=== PATIENT | female | born 1940 | race African-American/Black ===

== ENCOUNTER 2020-07-04 03:29 | Inpatient (IN) | payer BC ==
[~2020-07-04] VITALS: Ht 170.2 cm; Wt 93.1 kg
[2020-07-04 10:36] LABS: BASOPHILS % 1.1 % (0.0-2.0); EOSINOPHILS % 0.2 % (0.0-5.0); HEMATOCRIT. 41.3 % (36.0-48.0); HEMOGLOBIN. 13.4 g/dL (12.0-16.0); LYMPHOCYTES % 16.2 % (20.0-50.0); MEAN CORPUSCULAR HEMOGLOBIN 25.1 pg (28.0-32.0); MEAN CORPUSCULAR VOLUME 77.5 fL (81.0-99.0); MEAN PLATELET VOLUME 8.6 fl (7.4-10.4); MONOCYTES % 4.1 % (2.0-8.0); NEUTROPHILS % 78.4 % (40.0-76.0); PLATELET 325 x1000/uL (130-400); RED BLOOD CELL COUNT 5.34 mill/uL (4.2-5.4); RED CELL DISTRIBUTION WIDTH 15.5 % (11.6-14.6)
[2020-07-04 10:46] LABS: CHLORIDE 104 mEq/L (98-107)
[2020-07-04 10:47] LABS: D-DIMER 1.85 mg/L FEU (<0.50); INR 1.1; PROTHROMBIN TIME 11.5 sec (9.6-11.0)
[2020-07-04] MEDS ORDERED: FUROSEMIDE 20MG/2ML VIAL IVP NR (11:15)
[2020-07-04] MEDS ORDERED: ASPIRIN 325MG EC TABLET PO NR (11:30)
[2020-07-04] MEDS ORDERED: DOCUSATE SODIUM 100MG CAPSULE PO PRN (15:15)
[2020-07-04] MEDS ORDERED: ACETAMINOPHEN 325MG TABLET PO PRN ×2 (15:15)
[2020-07-04] MEDS ORDERED: MAGNESIUM/ALUMINUM HYDROXIDE/SIMETHICONE 30ML UDC PO PRN (15:15)
[2020-07-04] MEDS ORDERED: TRAMADOL 50MG TABLET PO PRN (15:15)
[2020-07-04] MEDS ORDERED: NITROGLYCERIN 0.4MG TABLET SL SL PRN (15:15)
[2020-07-04] MEDS ORDERED: CLONIDINE 0.1MG TABLET PO PRN (15:15)
[2020-07-04] MEDS ORDERED: ONDANSETRON HCL 4MG/2ML INJ IV PRN (15:15)
[2020-07-04] MEDS ORDERED: GUAIFENESIN 200MG/10ML SUGAR FREE UDC PO PRN (15:15)
[2020-07-04] MEDS ORDERED: ALBUTEROL 6.7GM HFA INHALER ORI PRN (15:15)
[2020-07-04] MEDS: ENOXAPARIN 40MG/0.4ML SYR SUBCUT SCH (15:50)
[2020-07-04] MEDS ORDERED: DEXTROSE 50% WATER 50ML SYRINGE IV PRN (16:00)
[2020-07-04] MEDS: BLOOD SUGAR DIAGNOSTIC STRIP TEST SCH ×2 (17:00→21:53)
[2020-07-04 17:01] LABS: *AMPHETAMINES SCREEN URINE NEGATIVE (NEGATIVE); *BARBITURATES SCREEN URINE NEGATIVE (NEGATIVE); *BENZODIAZEPINES SCREEN URINE NEGATIVE (NEGATIVE); *COCAINE SCREEN URINE NEGATIVE (NEGATIVE); METHADONE URINE SCREEN NEGATIVE (NEGATIVE); OPIATES URINE SCREEN NEGATIVE (NEGATIVE)
[2020-07-04 17:02] LABS: CANNABINOID URINE SCREEN NEGATIVE (NEGATIVE); PHENCYCLIDINE URINE SCREEN NEGATIVE (NEGATIVE)
[2020-07-04] MEDS: FUROSEMIDE 40MG/4ML VIAL IVP SCH (17:15)
[2020-07-04] MEDS: INSULIN LISPRO 100 UNITS/ML SUBCUT SCH ×2 (18:20→21:00)
[2020-07-04] MEDS: LISINOPRIL 20MG TABLET PO SCH (21:00)
[2020-07-04] MEDS: SPIRONOLACTONE 25MG TABLET PO SCH (21:00)
[2020-07-04] MEDS: GUAIFENESIN/DM 600MG/30MG ER TAB 12HR PO SCH (21:00)
[2020-07-04] MEDS ORDERED: ALBUTEROL 6.7GM HFA INHALER ORI SCH (21:00)
[2020-07-04] MEDS: ASCORBIC ACID 500 MG TABLET PO SCH (21:00)
[2020-07-04] MEDS: FAMOTIDINE 20MG TABLET PO SCH (21:00)
[2020-07-04] MEDS ORDERED: ZOLPIDEM TARTRATE 5MG TABLET PO PRN (21:00)
[2020-07-05] VITALS (8 sets, daily range): BP systolic 128–163; BP diastolic 59–84
[2020-07-05 00:50] LABS: CREATINE KINASE MB FRACTION 1.8 ng/mL (0.5-3.6)
[2020-07-05 05:41] LABS: BASOPHILS % 0.8 % (0.0-2.0); EOSINOPHILS % 0.6 % (0.0-5.0); HEMOGLOBIN. 12.8 g/dL (12.0-16.0); MEAN CORPUSCULAR HEMOGLOBIN 24.9 pg (28.0-32.0); MEAN CORPUSCULAR VOLUME 77.6 fL (81.0-99.0); MEAN PLATELET VOLUME 8.5 fl (7.4-10.4); MONOCYTES % 8.6 % (2.0-8.0); PLATELET 327 x1000/uL (130-400); RED BLOOD CELL COUNT 5.16 mill/uL (4.2-5.4)
[2020-07-05 05:54] LABS: CHLORIDE 105 mEq/L (98-107)
[2020-07-05 06:06] LABS: CREATINE KINASE 175 IU/L (26-192); PHOSPHORUS 3.2 mg/dL (2.5-4.9)
[2020-07-05] MEDS ORDERED: IOHEXOL-350 100 ML BOTTLE ONE (06:06)
[2020-07-05] MEDS: INSULIN LISPRO 100 UNITS/ML SUBCUT SCH ×4 (06:47→21:00)
[2020-07-05] MEDS: BLOOD SUGAR DIAGNOSTIC STRIP TEST SCH ×4 (06:47→21:00)
[2020-07-05] MEDS: FUROSEMIDE 40MG/4ML VIAL IVP SCH ×2 (07:04→17:32)
[2020-07-05] MEDS: FAMOTIDINE 20MG TABLET PO SCH ×2 (09:00→21:00)
[2020-07-05] MEDS: LISINOPRIL 20MG TABLET PO SCH ×2 (09:00→21:00)
[2020-07-05] MEDS ORDERED: CLOP75TA33 PO (14:07)
[2020-07-05] MEDS ORDERED: METF-414 PO (14:07)
[2020-07-05] MEDS ORDERED: AMLO10TA80 PO (14:07)
[2020-07-05] MEDS ORDERED: ASPI-1497 PO (14:07)
[2020-07-05] MEDS ORDERED: LEVO150T8 MT (14:07)
[2020-07-05] MEDS ORDERED: GLYB5TAB7 PO (14:07)
[2020-07-05] MEDS ORDERED: CHOLECALCIFEROL 1000 MG PO (14:08)
[2020-07-05] MEDS: ASPIRIN 325MG EC TABLET PO SCH (14:29)
[2020-07-05] MEDS: ZINC SULFATE 220 MG ( 50 ) CAPSULE PO SCH (14:29)
[2020-07-05] MEDS: GUAIFENESIN/DM 600MG/30MG ER TAB 12HR PO SCH ×2 (14:30→22:14)
[2020-07-05] MEDS: ASCORBIC ACID 500 MG TABLET PO SCH ×2 (14:30→22:15)
[2020-07-05] MEDS: SPIRONOLACTONE 25MG TABLET PO SCH ×2 (14:31→22:15)
[2020-07-05] MEDS: ENOXAPARIN 40MG/0.4ML SYR SUBCUT SCH (17:34)
[2020-07-06] VITALS (8 sets, daily range): BP systolic 101–148; BP diastolic 53–81
[2020-07-06] MEDS: INSULIN LISPRO 100 UNITS/ML SUBCUT SCH ×4 (08:00→21:17)
[2020-07-06] MEDS: GUAIFENESIN/DM 600MG/30MG ER TAB 12HR PO SCH ×2 (08:24→21:16)
[2020-07-06] MEDS: ASPIRIN 325MG EC TABLET PO SCH (08:24)
[2020-07-06] MEDS: ZINC SULFATE 220 MG ( 50 ) CAPSULE PO SCH (08:24)
[2020-07-06] MEDS: FUROSEMIDE 40MG/4ML VIAL IVP SCH ×2 (08:24→16:42)
[2020-07-06] MEDS: ASCORBIC ACID 500 MG TABLET PO SCH ×2 (08:25→21:16)
[2020-07-06] MEDS: FAMOTIDINE 20MG TABLET PO SCH (08:25)
[2020-07-06] MEDS: SPIRONOLACTONE 25MG TABLET PO SCH ×2 (08:25→21:16)
[2020-07-06] MEDS: LISINOPRIL 20MG TABLET PO SCH (08:25)
[2020-07-06] MEDS: BLOOD SUGAR DIAGNOSTIC STRIP TEST SCH ×4 (08:26→21:31)
[2020-07-06] MEDS: LOSARTAN POTASSIUM 100 MG TABLET PO SCH (09:47)
[2020-07-06] MEDS: ENOXAPARIN 40MG/0.4ML SYR SUBCUT SCH (16:44)
[2020-07-07] VITALS: BP 120/72
[2020-07-07 04:00] VITALS: BP 107/52
[2020-07-07] MEDS: BLOOD SUGAR DIAGNOSTIC STRIP TEST SCH ×4 (07:45→20:53)
[2020-07-07 08:00] VITALS: BP 128/64
[2020-07-07] MEDS: INSULIN LISPRO 100 UNITS/ML SUBCUT SCH ×4 (08:00→20:53)
[2020-07-07] MEDS: ZINC SULFATE 220 MG ( 50 ) CAPSULE PO SCH (08:59)
[2020-07-07] MEDS: ASCORBIC ACID 500 MG TABLET PO SCH ×2 (08:59→20:50)
[2020-07-07] MEDS: ASPIRIN 325MG EC TABLET PO SCH (08:59)
[2020-07-07] MEDS: FUROSEMIDE 40MG/4ML VIAL IVP SCH ×2 (08:59→18:13)
[2020-07-07] MEDS: OMEPRAZOLE 20MG CAPSULE EXTENDED RELEASE PO SCH (08:59)
[2020-07-07] MEDS: GUAIFENESIN/DM 600MG/30MG ER TAB 12HR PO SCH ×2 (08:59→20:51)
[2020-07-07] MEDS: LOSARTAN POTASSIUM 100 MG TABLET PO SCH (08:59)
[2020-07-07] MEDS: SPIRONOLACTONE 25MG TABLET PO SCH ×2 (08:59→20:50)
[2020-07-07 12:00] VITALS: BP 121/59
[2020-07-07 16:00] VITALS: BP 114/51
[2020-07-07] MEDS: ENOXAPARIN 40MG/0.4ML SYR SUBCUT SCH (18:13)
[2020-07-07 20:00] VITALS: BP 108/64
[2020-07-08] VITALS: BP 133/72
[2020-07-08 04:00] VITALS: BP 130/65
[2020-07-08] MEDS: FUROSEMIDE 40MG/4ML VIAL IVP SCH (06:26)
[2020-07-08] MEDS: BLOOD SUGAR DIAGNOSTIC STRIP TEST SCH (07:30)
[2020-07-08 08:00] VITALS: BP 142/97
[2020-07-08] MEDS: ASPIRIN 325MG EC TABLET PO SCH (08:31)
[2020-07-08] MEDS: GUAIFENESIN/DM 600MG/30MG ER TAB 12HR PO SCH (08:32)
[2020-07-08] MEDS: SPIRONOLACTONE 25MG TABLET PO SCH (08:32)
[2020-07-08] MEDS: ZINC SULFATE 220 MG ( 50 ) CAPSULE PO SCH (08:32)
[2020-07-08] MEDS: ASCORBIC ACID 500 MG TABLET PO SCH (08:32)
[2020-07-08] MEDS: LOSARTAN POTASSIUM 100 MG TABLET PO SCH (08:32)
[2020-07-08] MEDS: OMEPRAZOLE 20MG CAPSULE EXTENDED RELEASE PO SCH (08:32)
[2020-07-08] MEDS: INSULIN LISPRO 100 UNITS/ML SUBCUT SCH (09:05)
[2020-07-08 10:38] VITALS: BP 142/97
[2020-07-08 12:00] VITALS: BP 125/68
== END 2020-07-08 14:08 | disposition home or self-care (01) | DRG 291 ==
LOC: ER 03:29 → MICUSO 14:43 → EDBEDREQ 14:47 → SUPCPDRO 15:47 → 5EST 07-05 09:05
PROVIDERS: ADMIT Internal Medicine; ATTEND Internal Medicine
DX: I11.0 Hypertensive heart disease with heart failure (principal); J96.01 Acute respiratory failure with hypoxia; E87.1 Hypo-osmolality and hyponatremia; Z20.828 Contact with and (suspected) exposure to other viral communicable diseases; I50.43 Acute on chronic combined systolic (congestive) and diastolic (congestive) heart failure; E11.9 Type 2 diabetes mellitus without complications; Z86.73 Personal history of transient ischemic attack (TIA), and cerebral infarction without residual deficits; Z85.3 Personal history of malignant neoplasm of breast; Z90.10 Acquired absence of unspecified breast and nipple; Z90.710 Acquired absence of both cervix and uterus; Z79.4 Long term (current) use of insulin; Z79.899 Other long term (current) drug therapy; Z99.81 Dependence on supplemental oxygen; E66.9 Obesity, unspecified; Z68.32 Body mass index [BMI] 32.0-32.9, adult; Z71.3 Dietary counseling and surveillance
CPT/HCPCS: 36415; 71045; 71275; 80053; 80061; 80305; 82550; 82553; 82607; 82746; 82962; 83036; 83540; 83550; 83735; 83880; 84100; 84145; 84484; 85025; 85379; 93005; 93306; 93970; 96374; 99291; J1650; J1815; J1940; Q9967; U0003